=== PATIENT | male | born 1955 | race Caucasian/White ===

== ENCOUNTER → 2019-03-01 | Outpatient (CLI) | payer BC ==
--- NOTE | 2019-03-01 14:25 | REP ---
Clinical: Trauma Technique: AP, lateral, bilateral oblique views of the left fifth digit. Findings: There is a comminuted fracture involving the distal phalanx/terminal tuft consistent with crush injury. Remainder examination appears normal. Impression: Comminuted fracture of the left fifth distal phalanx/terminal tuft. Electronically Signed by Clement Antoine MD 03/01/2019 02:16 P
== END ==
LOC: M WUC 14:01
PROVIDERS: ATTEND Physician Assistant
DX: S60.152A Contusion of left little finger with damage to nail, initial encounter (principal)

== ENCOUNTER 2019-03-29 08:41 | Inpatient (IN) | payer BC ==
[2019-03-29] VITALS (13 sets, daily range): BP systolic 91–115; BP diastolic 61–75
[~2019-03-29] VITALS: Ht 172.7 cm; Wt 91.4 kg
[2019-03-29] MEDS ORDERED: METO1TAB32 PO (09:01)
[2019-03-29] MEDS ORDERED: ATOR1TAB21 PO (09:01)
[2019-03-29] MEDS ORDERED: LISI-542 PO (09:01)
[2019-03-29 10:01] LABS: BASO % 0.4 % (0.0-1.0); EOS # 0.3 10^3/uL (0.0-0.5); EOS % 3.1 % (0.0-3.0); HEMATOCRIT 43.2 % (42.0-52.0); HEMOGLOBIN 14.1 g/dl (13.5-17.5); LYMPH # 1.2 10^3/uL (1.5-5.0); LYMPH % 14.7 % (24.0-44.0); MEAN CORPUSCULAR HEMOGLOBIN 29.8 pg (27.0-33.0); MEAN CORPUSCULAR HGB CONC 32.6 g/dl (32.0-36.5); MEAN CORPUSCULAR VOLUME 91.3 fl (80.0-96.0); MONO # 0.6 10^3/uL (0.0-0.8); MONO % 6.8 % (0.0-5.0); NEUTROPHILS # 6.1 10^3/uL (1.5-8.5); NEUTROPHILS % 74.5 % (36.0-66.0); PLATELET COUNT, AUTOMATED 113 10^3/uL (150-450); RED BLOOD COUNT 4.73 10^6/uL (4.30-6.10); WHITE BLOOD COUNT 8.1 10^3/uL (4.0-10.0)
[2019-03-29] MEDS ORDERED: NS 1,000 ML IV ONE ×2 (10:30→11:00)
[2019-03-29 10:49] LABS: ALBUMIN 3.5 GM/DL (3.2-5.2); ALT/SGPT 46 U/L (12-78); BILIRUBIN,DIRECT 0.2 MG/DL (0.0-0.2); BILIRUBIN,TOTAL 0.6 MG/DL (0.2-1.0); BLOOD UREA NITROGEN 18 MG/DL (7-18); CALCIUM LEVEL 7.7 MG/DL (8.8-10.2); CARBON DIOXIDE LEVEL 19 MEQ/L (21-32); CHLORIDE LEVEL 111 MEQ/L (98-107); CK-MB VALUE MASS 1.7 NG/ML (<3.6); CPK CREATINE PHOSPHOKINASE 80 U/L (39-308); CREATININE FOR GFR 1.12 MG/DL (0.70-1.30); FREE T4 1.15 NG/DL (0.76-1.46); GLOMERULAR FILTRATION RATE > 60.0 (>49); GLUCOSE, FASTING 159 MG/DL (70-100); MAGNESIUM LEVEL 1.9 MG/DL (1.8-2.4); MB/CK RELATIVE INDEX 2.12 (< OR =4); POTASSIUM SERUM 3.9 MEQ/L (3.5-5.1); SODIUM LEVEL 142 MEQ/L (136-145); TOTAL PROTEIN 6.1 GM/DL (6.4-8.2); TROPONIN I 0.34 NG/ML (< 0.10)
[2019-03-29] MEDS ORDERED: ISOVUE-370 76% 100ML VIAL (Q9967) As Ordered ONE (10:59)
--- NOTE | 2019-03-29 11:32 | REP ---
AP PORTABLE CHEST: 03/29/2019. Clinical history: Syncope, hypothermia. Findings: The lungs are adequately inflated. There is no effusion or acute infiltrate, air within a hiatal hernia is noted in the lower mediastinum. Heart has left ventricular configuration and may be some left atrial enlargement. I do not see vascular redistribution or edema. The aorta is mildly tortuous at the arch but without aneurysm. Airway intact. Some degenerative changes in the spine and shoulders. Impression: 1. Left ventricular configuration of the heart without vascular redistribution or pulmonary edema. No acute infiltrate. 2. Hiatal hernia and some degenerative changes in the spine and shoulders. Electronically Signed by Yordan Guillen MD 03/29/2019 07:07 P
[2019-03-29 11:34] LABS: INR 1.16; PROTHROMBIN TIME 14.6 SECONDS (11.8-14.0)
[2019-03-29] MEDS ORDERED: HEPARIN SOD (PORCINE) 5000 UNITS/ML VIAL IV ONE (12:00)
[2019-03-29] MEDS ORDERED: HEPARIN DRIP 25,000 UNITS in IV 1 EA IV SCH ×3 (13:00→18:00)
--- NOTE | 2019-03-29 13:05 | REP ---
CT BRAIN WITHOUT CONTRAST: 03/29/2019. Clinical history: Fall, syncope. Findings: No prior studies. Noncontrast images of the brain show lateral ventricles midline, symmetric and without dilatation or displacement. Third and fourth ventricles are also in proportion. Basal ganglia symmetric and intact. The basal cisterns are unremarkable. The green-white junction differentiation was normal. I do not see chronic small vessel white matter ischemic changes. The cortical stripe was preserved. There is no vascular territory infarct, hemorrhage, mass, mass effect or edema. Brainstem is intact. Cerebellum shows some minimal atrophy. There is no posterior fossa hemorrhage. Basal cisterns were intact. Mastoids and visualized sinuses were clear. Skull base and calvarium show no fracture or focal lesion. Impression: 1. No CT evidence of acute infarct, hemorrhage, mass, mass effect or edema. 2. Sinuses, mastoids, skull base and calvarium all grossly intact. Negative CT brain. Electronically Signed by Yordan Guillen MD 03/29/2019 07:04 P
--- NOTE | 2019-03-29 13:07 | REP ---
CT CERVICAL SPINE WITHOUT CONTRAST: 03/29/2019. Clinical history: Fall, syncope. Findings: No prior studies. Standard trauma protocol for cervical spine was utilized. Sagittal reconstructions show cervical spondylosis from C3-4 through C6-7. Anterior osteophytes greatest at C6-7, less at C4-5 and C5-6. Osteophytes at other levels as well. Posterior osteophytes only at C5-6 disc space narrowing from C3-4 through C6-7. No compression deformities. The dens was intact in its relationship to the anterior arch and lateral masses of C1 was symmetric and craniocervical junction was unremarkable. Posterior elements including the spinous processes, lamina, pedicles, facets, transverse processes and transverse foramina were all intact. Visualized mastoids intact. There is no evidence of a torticollis on the coronal image. Axial views show no anterior posterior cervical chain mass or pathologic sized adenopathy. The foramina show mild encroachment a left at C3-4 and C4-5 due to uncinate facet spurs left foraminal encroachment at C5-6 due to uncinate and facet spurs. Mild foraminal encroachment bilaterally at C6-7 and C7-T1. The upper thoracic region including those vertebral bodies and portions of the first two rib were unremarkable. Impression: 1. Cervical spondylosis from C3-4 through C6 without compression fracture or malalignment. 2. No significant central canal stenosis but there is foraminal encroachment due to combined factors at multiple levels. 3. Posterior elements without fracture or focal lesion. Electronically Signed by Yordan Guillen MD 03/29/2019 07:04 P
[2019-03-29] MEDS ORDERED: MOM 30ML SUSPENSION UDC PO PRN (13:15)
[2019-03-29] MEDS ORDERED: HEPARIN SOD (PORCINE) 5000 UNITS/ML VIAL IV PRN (13:15)
--- NOTE | 2019-03-29 13:15 | REP ---
CT ANGIOGRAM CHEST: 03/29/2019. Clinical history: Hypotension, syncope. Technique: Bolus of 100 ml Isovue 370 scanning through the chest with coronal and sagittal standard and MIP reconstructions. Findings: The lung rodarte show minimal dependent atelectatic change in the lower lung zones. No effusion or acute infiltrate. No pulmonary nodule or mass. The heart shows left ventricular configuration with left ventricular enlargement. No pericardial thickening or effusion. There is a moderate sized hiatal hernia as seen on chest x-ray. I see no pathologic sized mediastinal or hilar adenopathy. The aorta is without aneurysm or dissection. The main pulmonary artery segment was unremarkable. The left pulmonary artery shows distal thrombus which is also seen extending into the segmental left upper and lower lobe branches, particularly left lower lobe were all segments have extensive thrombus. The right pulmonary artery peripherally shows extensive thrombus in the lower lobe involving the lateral and medial basal segments as well as superior segment. There is also thrombus in the right middle and upper lobe segments. This is not a saddle embolus. However. No pathologic sized mediastinal or hilar mass. The axillary region shows no adenopathy nor is there supraclavicular mass. The bone windows show sternum, manubrium, clavicles as visualized, portions of the scapula and humeral heads all without fracture, focal lesion. The visualized ribs and spine are without fracture. The upper abdomen will be discussed in the CT abdomen report. Impression: 1. Extensive pulmonary emboli involving all lobes. Particularly the lower lobe segmental vessels are involving more left than right. These findings were discussed by phone with the attending physician during this dictation. 2. Moderate sized hiatal hernia. Left ventricular enlargement. 3. Some minor degenerative bone changes. No other significant finding. Electronically Signed by Yordan Guillen MD 03/29/2019 07:05 P
--- NOTE | 2019-03-29 13:41 | REP ---
CT ABDOMEN PELVIS WITH IV CONTRAST: 03/29/2019. Clinical history: Hypotension, syncope. Technique: Bolus 100 ml Isovue 370 scanning through the abdomen pelvis with coronal and sagittal reconstructions. Findings: CT abdomen: There are no priors studies. Lung bases show minor dependent atelectasis. There is a moderate sized hiatal hernia. The heart size mildly prominent with left ventricular configuration. There is evidence of thrombus in both lower lobes and right middle lobe pulmonary artery segments is seen. The upper most of view images. This was seen in entirety on the CTA chest and already described. Liver is not enlarged. Spleen shows no focal lesion. There is no biliary dilatation nor adjacent ascites. No hepatic mass. Gallbladder is without calcified stone or mass. Pancreas, adrenal glands and kidneys are unremarkable. I see no aortic aneurysm or dissection. No periaortic or retroperitoneal pathologic sized lymphadenopathy. There is atherosclerotic calcifications in the aorta and branches. Small bowel loops unremarkable. The colon is without sign of colitis or diverticulitis in the abdomen proper. Lung window review of all CT slices shows no perforation or free air. Bone windows show degenerative disc changes and some hypertrophic facet changes lower lumbar spine. No compression deformity of destructive lesions in the thoracic or lumbar region. The visualized lower thoracic ribs were unremarkable. CT pelvis: Sacrum, SI joints, pelvis and hips are without fracture or focal lesion. Some minor degenerative changes are seen. There is no renal, ureteral or bladder stone. No hydronephrosis or hydroureter. Pelvic phleboliths are seen bilaterally. Distal left colon and sigmoid show some muscular hypertrophy and diverticulosis without diverticulitis. Small bowel loops deep pelvis unremarkable. Prostate with some calcifications but no significant enlargement. No ventral or inguinal hernia. Impression: 1. No CT evidence of acute pathology in the abdomen pelvis. I see no retroperitoneal hematoma, mass, calcified gallstone, renal stone disease, adenopathy or other acute finding. 2. Moderate sized hiatal hernia. 3. Pulmonary emboli visible as described in the CT report ovary given. Electronically Signed by Yordan Guillen MD 03/29/2019 07:05 P
[2019-03-29] MEDS ORDERED: HEPARIN 1,000 UNITS/ML 10ML VIAL (FOR RADIOLOGY& DIALYSIS ONLY) As Ordered ONE (14:40)
[2019-03-29] MEDS ORDERED: MIDAZOLAM INJ 2 MG/2 ML VIAL (J2250) As Ordered ONE (14:40)
[2019-03-29] MEDS ORDERED: fentaNYL 100 MCG/2 ML INJECTION (J3010) As Ordered ONE (14:40)
[2019-03-29] MEDS ORDERED: LIDOCAINE 1% MDV 20ML VIAL As Ordered ONE (14:41)
[2019-03-29] MEDS ORDERED: ISOVUE-300 61% 50ML VIAL (Q9967) As Ordered ONE (14:41)
--- NOTE | 2019-03-29 14:51 | REP ---
BILATERAL LOWER EXTREMITY DOPPLER VENOUS ULTRASOUND: 03/29/2019. Clinical history: Known pulmonary emboli. Comparison: None Technique: The deep venous system of the bilateral lower extremities is evaluated with green scale imaging, compression ultrasound, color imaging and duplex Doppler interrogation. Examination from the groin through the popliteal fossa into the proximal calf. RIGHT LOWER EXTREMITY: Findings: There is full compressibility from the common femoral vein in the inguinal region through the popliteal vein. Color imaging confirms patency throughout the course of the deep venous system. There is respiratory variation and augmented flow at all levels. Impression: 1. No Doppler venous ultrasound evidence of DVT in the right lower extremity. LEFT LOWER EXTREMITY: Findings: The common femoral and superficial femoral vein to the proximal popliteal vein showed full compressibility, color flow and duplex Doppler tracings with normal compression characteristics. However the distal popliteal vein and tibioperoneal trunk and extending into both posterior tibial and left peroneal veins show occlusive thrombus. Impression: 1. There is an occlusive thrombus in the distal left popliteal vein into the tibioperoneal trunk, left posterior tibial and left peroneal veins. Proximal popliteal vein through to the common femoral vein are without thrombus and fully compressible. Electronically Signed by Yordan Guillen MD 03/29/2019 02:42 P
--- NOTE | 2019-03-29 15:26 | CR.PDOC ---
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 He bent over to pick something up and felt himself passing out. He then contacted EMS who brought him to the emergency department. He was worked up appropriately and CTA of the chest confirmed a large clot burden in the left and right proximal pulmonary arteries, but no saddle embolus present. The patient was stable on room air 96% when at rest, but dramatically short of breath with any exertion, even rolling over in bed. He was a bit hypotensive on arrival to the ER which resolved with IV fluid hydration. He was started immediately on a heparin drip and is currently therapeutic. We discussed the risks benefits and alternatives to a TPA thrombolysis of pulmonary emboli and he is agreeable to proceed. His family is present at the bedside and we had an extensive conversation. Additionally, we went over a list of risk factors for bleeding with TPA and the patient denies nosebleeds, bleeding gums, hemoptysis, hematemesis, varices, history of alcoholism, hematuria, hematochezia, recent trauma other than his syncopal episode today where he says he did not hit his head or injure himself. He denies car accidents, falls, sports injuries, orthopedic injuries, or other injuries. He denies recent surgeries. His only current risk factor for bleeding is that the patient has hemorrhoids and occasionally has blood on the toilet tissue when he wipes after a bowel movement. We will give him a stool softener, but I told him if he has bleeding from hemorrhoids we will have to stop the tPA. Due to the large clot burden, I think we will accept this risk for him as the benefits of TPA thrombolysis outweigh the risks for bleeding from hemorrhoids at this point. If bleeding should occur, we should be able to control it and we will have to stop the tPA. After having a lengthy discussion with the patient in reviewing his imaging and also his venous duplex of the bilateral lower extremities, he was agreeable to proceed with TPA thrombolysis. Informed consent was obtained. He has minimal residual thrombus in the distal popliteal and tibial veins on the left, no DVT on the right, thus I do not feel an IVC filter is necessary at this time. We'll proceed to IR for thrombolysis. ALLERGIES: Please see below. HOME MEDICATIONS: Please see below. PAST MEDICAL HISTORY: 1. Hypertension 2. Hemorrhoids 3. Hyperlipidemia PAST SURGICAL HISTORY: 1. Cardiac cath 2. Discectomy 3. Appendectomy 4. ACL repair FAMILY HISTORY: Hypertension, heart disease SOCIAL HISTORY: Patient is and his children are also present today. He is a former smoker, but no current tobacco or illicit drug use and minimal social alcohol use reported. REVIEW OF SYSTEMS: CONSTITUTIONAL: Denies weak gain or weight loss, fevers or chills HEENT: Denies vision changes, dysphagia, or dysphasia CARDIOVASCULAR: Positive palpitations positive chest pain RESPIRATORY: Positive shortness of breath GENITOURINARY: No dysuria MUSCULOSKELETAL: Positive back pain GASTROINTESTINAL: Positive hemorrhoids SKIN: Denies rashes or skin cancers NEUROLOGICAL: Denies headache seizures focal neurologic deficits PSYCHIATRIC: Denies anxiety depression ENDOCRINE: Denies diabetes or thyroid disease HEMATOLOGIC/LYMPHATIC: Denies bleeding or clotting disorders ALLERGIC/IMMUNOLOGIC: Denies. PHYSICAL EXAMINATION: VITAL SIGNS: Please see below. GENERAL APPEARANCE: Well-appearing gentleman in no acute distress HEENT: PERRL, TMI RESPIRATORY: Diminished breath sounds bilaterally no wheezes CARDIOVASCULAR: Regular rhythm tachycardia 113 ABDOMEN: Soft nontender nondistended EXTREMITIES: Positive distal pulses, no significant swelling in lower extremities NEUROLOGICAL: Alert and oriented 3, moves all extremities equally. PSYCHIATRIC: Pleasant and cooperative LABORATORY DATA: Please see below. ASSESSMENT/PLAN: 1. Will proceed for TPA thrombolysis bilateral pulmonary emboli. Patient will require ICU bed post procedure. He will be on bedrest until planned takeback tomorrow for repeat imaging and possible ongoing TPA thrombolysis versus discontinuation of thrombolysis catheter. 2. Stool softener to minimize risk of bleeding from hemorrhoids. We appreciate the opportunity to participate in the care of this patient. Vital Signs/I&O Vital Signs Date Time Temp Pulse Resp B/P (MAP) Pulse Ox O2 Delivery O2 Flow Rate FiO2 03/29/19 14:51 120 98 03/29/19 14:47 122/76 (91) 03/29/19 09:03 96.7 03/29/19 08:51 20 Room Air Laboratory Data Labs 24H Laboratory Tests 2 03/29/19 09:45: Immature Granulocyte % (Auto) 0.5, White Blood Count 8.1, Red Blood Count 4.73, Hemoglobin 14.1, Hematocrit 43.2, Mean Corpuscular Volume 91.3, Mean Corpuscular Hemoglobin 29.8, Mean Corpuscular Hemoglobin Concent 32.6, Red Cell Distribution Width 12.4, Platelet Count 113L, Neutrophils (%) (Auto) 74.5H, Lymphocytes (%) (Auto) 14.7L, Monocytes (%) (Auto) 6.8H, Eosinophils (%) (Auto) 3.1H, Basophils (%) (Auto) 0.4, Neutrophils # (Auto) 6.1, Lymphocytes # (Auto) 1.2L, Monocytes # (Auto) 0.6, Eosinophils # (Auto) 0.3, Basophils # (Auto) 0.0, Nucleated Red Blood Cells % (auto) 0.0, Carboxyhemoglobin 2.4H, Anion Gap 12, Glomerular Filtration Rate > 60.0, Lactic Acid Level 4.3*H, Calcium Level 7.7L, Magnesium Level 1.9, Aspartate Amino Transf (AST/SGOT) 34, Alanine Aminotransferase (ALT/SGPT) 46, Alkaline Phosphatase 109, Total Bilirubin 0.6, Direct Bilirubin 0.2, Total Creatine Kinase 80, Creatine Kinase MB 1.7, Creatine Kinase MB Relative Index 2.12, Troponin I 0.34H, Total Protein 6.1L, Albumin 3.5, Albumin/Globulin Ratio 1.35, Thyroid Stimulating Hormone (TSH) 1.480, Free Thyroxine 1.15 03/29/19 11:11: Prothrombin Time 14.6H, Prothromb Time International Ratio 1.16, Activated Partial Thromboplast Time 20.0L 03/29/19 13:46: Erythrocyte Sedimentation Rate 3, C-Reactive Protein, Quantitative 0.46H 03/29/19 15:09: CBC/BMP Laboratory Tests 03/29/19 09:45 Red Blood Count 4.73, Mean Corpuscular Volume 91.3, Mean Corpuscular Hemoglobin 29.8, Mean Corpuscular Hemoglobin Concent 32.6, Red Cell Distribution Width 12.4, Neutrophils (%) (Auto) 74.5 H, Lymphocytes (%) (Auto) 14.7 L, Monocytes (%) (Auto) 6.8 H, Eosinophils (%) (Auto) 3.1 H, Basophils (%) (Auto) 0.4, Neutrophils # (Auto) 6.1, Lymphocytes # (Auto) 1.2 L, Monocytes # (Auto) 0.6, Eosinophils # (Auto) 0.3, Basophils # (Auto) 0.0 Microbiology Microbiology 03/29/19 Blood Culture, Received Pending 03/29/19 Blood Culture, Received Pending Allergies Coded Allergies: tamsulosin (Verified Allergy, Unknown, 03/29/19) Home Medications Scheduled Atorvastatin Calcium (Atorvastatin Calcium) 20 Mg Tablet, 20 MG PO DAILY, (Reported) Lisinopril (Lisinopril) 5 Mg Tablet, 5 MG PO DAILY, (Reported) Metoprolol Succinate (Metoprolol Succinate) 25 Mg Tab.er.24h, 25 MG PO DAILY, (Reported) NICHOLAS NOBLES MD Mar 29, 2019 15:26
[2019-03-29] MEDS ORDERED: ALTEPLASE 2 MG/2 ML VIAL (J2997 PER 1MG) As Ordered ONE (15:55)
[2019-03-29] MEDS ORDERED: ceFAZolin 1GM INJ (J0690 PER 500MG) As Ordered ONE (15:59)
--- NOTE | 2019-03-29 15:59 | HPEPDOC ---
General Date of Admission Mar 29, 2019 at 13:04 Date of Service: Mar 29, 2019 Chief Complaint The patient is a 63-year-old male admitted with a reason for visit of Syncope. Source: Patient, Family Exam Limitations: No limitations Associated Symptoms: Syncope, Weakness, Hypotension, Dizziness History of Present Illness 63 year old male with PMH of hypertension and hyperlipidemia was brought in by EMS for unwitnessed Syncope after he was found down by the side of the road near his trailer. EMS found him to be hypotensive and hypothermic and could not get an IV into him in the field. As per joao he was working in his shed which was across the street from his trailer about 300 ft. he was sorting through things there when he felt dizzy he leaned on the show blower there expecting the dizziness to pass . Next thing he knows he is on the floor of the shed. Initially he felt disoriented and took a few minutes to figure out where he was . he was very weak and could not stand up he dragged himself out of the shed to the side of the road and was able to attract the neighbors attention who then called the EMS. The whole thing happened within about 45 minutes. Unsure how long he had passed out for. He denies any bowel or bladder incontinence. Patient says that he was just not feeling well for the past 2 weeks feeling t ired and lack of energy but nothing too bad and did not need to see any doctor. He is a school administrator by profession. He drives about 3 hours in the mornings and 2 hours in the afternoons for his job. On Arrival to the ED he was hypotensive with Bp of 68/45. he was hypothermic with a temperature of 95.3. Extensive work up in the ED showed Extensive pulmonary emboli involving all lobes. Particularly the lower lobe segmental vessels are involving more left than right and a DVT in the Left popliteal vein and tibioperoneal trunk. Patient was admitted for DVT and massive pulmonary embolism causing syncope. Home Medications Scheduled Atorvastatin Calcium (Atorvastatin Calcium) 20 Mg Tablet, 20 MG PO DAILY, (Reported) Lisinopril (Lisinopril) 5 Mg Tablet, 5 MG PO DAILY, (Reported) Metoprolol Succinate (Metoprolol Succinate) 25 Mg Tab.er.24h, 25 MG PO DAILY, (Reported) Allergies Coded Allergies: tamsulosin (Verified Allergy, Unknown, 03/29/19) Past Medical History Medical History Diverticulitis, hypertension, hyperlipidemia, BPH, Asthma Surgical History Vasectomy, appendectomy, knee surgery, wisdom tooth extraction Family History Significant Family History: Cancer (father colon cancer), COPD (mother), Heart disease (mother), Hypertension (father), Other (MCTD in sister, Stroke due to SVT with PFO in mother.) Social History * Smoker: former Smoker (1/2 pack for 10 years) Alcohol: occationally (2 glasses of wine in a week) Drugs: denies A-FIB/CHADSVASC A-FIB History Current/History of A-Fib/PAF?: No Review of Systems Constitutional: Reports: Weakness, Fatigue; Denies: Chills, Fever, Night Sweats Eyes: Denies: Pain, Vision change ENT: Denies: Head Aches, Ear Pain, Dysphagia Skin: Denies: Rash, Lesions, Breakdown Pulmonary: Denies: Dyspnea, Cough Cardiovascular: Reports: Palpitations, Lt Headedness; Denies: Chest Pain, Orthopnea, Paroxysmal Noc. Dyspnea, Edema Gastrointestinal: Denies: Nausea, Vomiting, Abdominal Pain, Diarrhea Genitourinary: Denies: Dysuria, Frequency, Incontinence, Retention Hematologic: Denies: Bruising, Bleeding Excessively Musculoskeletal: Reports: Back Pain; Denies: Neck Pain, Joint Pain, Muscle Pain, Spasms Neurological: Reports: Confusion Psych: Denies: Depression, Memory Issues Physical Examination General Exam: Positive: Alert, Cooperative, No Acute Distress Eye Exam: Positive: PERRLA, Conjunctiva & lids normal, EOMI; Negative: Sclera icteric ENT Exam: Positive: Atraumatic, Mucous membr. moist/pink, Pharynx Normal Neck Exam: Positive: Supple; Negative: JVD, thyromegaly Chest Exam: Positive: Clear to auscultation, Normal air movement Heart Exam: Positive: Bradycardic, Regular Rhythm, Normal S1, Normal S2; Negative: Gallops, Murmurs, Rubs Telemetry: Positive: Sinus Abdomen Exam: Positive: Normal bowel sounds, Soft; Negative: Tenderness, Hepatospenomegaly Extremity Exam: Negative: Clubbing, Cyanosis, Edema, Tenderness, Swelling Skin Exam: Positive: Nl turgor and temperature; Negative: Breakdown, Lesion Neuro Exam: Positive: Normal Tone, Cranial Nerves 3-12 NL Psych Exam: Positive: Mental status NL, Memory Intact, Oriented x 3 Vital Signs Vital Signs Date Time Temp Pulse Resp B/P (MAP) Pulse Ox O2 Delivery O2 Flow Rate FiO2 03/29/19 14:51 120 98 03/29/19 14:47 122/76 (91) 03/29/19 09:03 96.7 03/29/19 08:51 20 Room Air Laboratory Data Labs 24H Laboratory Tests 2 03/29/19 09:45: Immature Granulocyte % (Auto) 0.5, White Blood Count 8.1, Red Blood Count 4.73, Hemoglobin 14.1, Hematocrit 43.2, Mean Corpuscular Volume 91.3, Mean Corpuscular Hemoglobin 29.8, Mean Corpuscular Hemoglobin Concent 32.6, Red Cell Distribution Width 12.4, Platelet Count 113L, Neutrophils (%) (Auto) 74.5H, Lymphocytes (%) (Auto) 14.7L, Monocytes (%) (Auto) 6.8H, Eosinophils (%) (Auto) 3.1H, Basophils (%) (Auto) 0.4, Neutrophils # (Auto) 6.1, Lymphocytes # (Auto) 1.2L, Monocytes # (Auto) 0.6, Eosinophils # (Auto) 0.3, Basophils # (Auto) 0.0, Nucleated Red Blood Cells % (auto) 0.0, Carboxyhemoglobin 2.4H, Anion Gap 12, Glomerular Filtration Rate > 60.0, Lactic Acid Level 4.3*H, Calcium Level 7.7L, Magnesium Level 1.9, Aspartate Amino Transf (AST/SGOT) 34, Alanine Aminotransferase (ALT/SGPT) 46, Alkaline Phosphatase 109, Total Bilirubin 0.6, Direct Bilirubin 0.2, Total Creatine Kinase 80, Creatine Kinase MB 1.7, Creatine Kinase MB Relative Index 2.12, Troponin I 0.34H, Total Protein 6.1L, Albumin 3.5, Albumin/Globulin Ratio 1.35, Thyroid Stimulating Hormone (TSH) 1.480, Free Thyroxine 1.15 03/29/19 11:11: Prothrombin Time 14.6H, Prothromb Time International Ratio 1.16, Activated Partial Thromboplast Time 20.0L 03/29/19 13:46: Activated Partial Thromboplast Time > 240.0*H, Erythrocyte Sedimentation Rate 3, C-Reactive Protein, Quantitative 0.46H 03/29/19 15:09: CBC/BMP Laboratory Tests 03/29/19 09:45 Red Blood Count 4.73, Mean Corpuscular Volume 91.3, Mean Corpuscular Hemoglobin 29.8, Mean Corpuscular Hemoglobin Concent 32.6, Red Cell Distribution Width 12.4, Neutrophils (%) (Auto) 74.5 H, Lymphocytes (%) (Auto) 14.7 L, Monocytes (%) (Auto) 6.8 H, Eosinophils (%) (Auto) 3.1 H, Basophils (%) (Auto) 0.4, Neutrophils # (Auto) 6.1, Lymphocytes # (Auto) 1.2 L, Monocytes # (Auto) 0.6, Eosinophils # (Auto) 0.3, Basophils # (Auto) 0.0 Microbiology Microbiology 03/29/19 Blood Culture, Received Pending 03/29/19 Blood Culture, Received Pending Assessment/Plan 63 year old male with PMH of hypertension and hyperlipidemia was brought in by EMS for unwitnessed Syncope after he was found down by the side of the road near his trailer. EMS found him to be hypotensive and hypothermic and could not get an IV into him in the field. As per joao he was working in his shed which was across the street from his trailer about 300 ft. he was sorting through things there when he felt dizzy he leaned on the show blower there expecting the dizziness to pass . Next thing he knows he is on the floor of the shed. Initially he felt disoriented and took a few minutes to figure out where he was . he was very weak and could not stand up he dragged himself out of the shed to the side of the road and was able to attract the neighbors attention who then called the EMS. The whole thing happened within about 45 minutes. Unsure how long he had passed out for. Patient says that he was just not feeling well for the past 2 weeks feeling tired and lack of energy but nothing too bad and did not need to see any doctor. He is a school administrator by profession. He drives about 3 hours in the mornings and 2 hours in the afternoons for his job. On Arrival to the ED he was hypotensive with Bp of 68/45. he was hypothermic with a temperature of 95.3. Extensive work up in the ED showed Extensive pulmonary emboli involving all lobes. Particularly the lower lobe segmental vessels are involving more left than right and a DVT in the Left popliteal vein and tibioperoneal trunk. Patient was admitted for DVT and massive pulmonary embolism causing syncope. Syncope due to massive pulmonary embolism with hypotension Continue IVF resuscitation will admit to ICU and treat pulmonary embolism Pulmonary Embolism with left popliteal and distal DVT unstable with hypotension will send hypercoagulable work up started on heparin infusion with APTT every 2hours . will try to aim for therapeutic levels as quickly as possible Consulted Vascular. Dr Agosto will be taking the patient to IR for intra clot thrombolysis. Will get echo Hypertension will hold all antihypertensive meds Hyperlipidemia will hold statin for now. Plan / VTE VTE Prophylaxis Ordered?: Yes ALISON ANDERSEN MD Mar 29, 2019 15:59
[2019-03-29] MEDS: NS 1,000 ML IV SCH (16:00)
[2019-03-29] MEDS ORDERED: ALTEPLASE RECOMBINANT 25 MG in NS 225 ML IV SCH (17:00)
[2019-03-29] MEDS ORDERED: diazePAM 5 MG TAB PO PRN (17:15)
--- NOTE | 2019-03-29 17:58 | ROOPDOC ---
[facility] Report Of Operation Report of Operation DATE OF PROCEDURE: 03/29/19 PREPROCEDURE DIAGNOSES: Bilateral extensive pulmonary emboli, symptomatic POSTPROCEDURE DIAGNOSES: Same PROCEDURE: 1. Ultrasound-guided access right common femoral vein 2. Pulmonary arteriogram 3. Placement of a 20 cm thrombolysis catheter left pulmonary artery SURGEON: Nicholas Bentley MD ANESTHESIA: 5 mL local anesthesia. Moderate intravenous conscious sedation was supervised by Dr. Bentley. The patient was independently monitored by a registered nurse assign the Department of radiology using automated blood press ure, EKG, and pulse oximetry. The detail conscious sedation record is permanently started in the hospital information system. The following is a conscious sedation record: 1 mg Versed, 25 g fentanyl, start time 15:56, stop time 17:01. INDICATION FOR PROCEDURE: This is a very pleasant 63-year-old patient who had a syncopal episode acutely today while performing tasks around the house. He became very short of breath and was brought by EMS to the ER and appropriate workup was performed. The patient had a CT of the chest that revealed substantial bilateral pulmonary emboli. He was tachycardic, hypotensive, short of breath with any exertion, and we discussed the risks benefits and alternatives to pulmonary arteriogram with placement of the thrombolysis catheter. He was extensively questioned about bleeding risks and recent history of bleeding, and denied any recent bleeding or risks of bleeding except for a history of hemorrhoids and mild bleeding after bowel movements at times. We will watch for this and start a stool softener to hopefully prevent bleeding but will stop the tPA if any bleeding is noted. The patient was in his family were extensively counseled and all questions were answered. Informed consent was obtained. INTERPRETATION: 1. The main pulmonary arteries left and right are patent but the subsegmental proximal branches are all heavy with clot. No saddle embolus is noted. 2. Successful placement of tPA lysis catheter, 20 cm infusion length, across the main pulmonary artery and into the left pulmonary artery. PROCEDURE: Patient was brought to the angiographic suite in stable condition and placed supine on the fluoroscopic table. His bilateral groins were prepped and draped in sterile fashion. A timeout was performed. Sedation and antibiotics were administered without complication. Local anesthesia was a needle leader to skin and subcutaneous tissue over the right common femoral vein and a microneedle was used to access the vein under ultrasound guidance. A wire was passed through this access and a micro-sheath was placed and flushed with saline. We then passed a Glidewire through this access into the femoral vein, the IVC, and the S VC under fluoroscopic guidance. We then exchanged sheath for a 6 [place] sheath and flushed the sheath with saline. Following this, we advanced and ankles catheter into the proximal IVC and utilize this to access the right atrium. We then advanced a Glidewire through the right atrium, through the right ventricle into the pulmonary arteries. The catheter was then advanced in a pulmonary arteriogram was performed. We access the right pulmonary artery and 6 mg of tPA was injected. We then switched her catheter to the left pulmonary artery and advanced it is far as we could so it had good purchase and would not move out of the pulmonary artery overnight. Following this, we injected 4 mg of tPA into the left pulmonary artery. We then began her infusion of 1 mg of tPA in our through the infusion catheter. Normal saline was used to keep the sheath open on a pressure back. Heparin was administered through the peripheral IV at 400 units an hour. The sheath in the catheter were securely fastened to the patient's leg and covered with Tegaderms. The patient was then allowed to transfer to the ICU in stable condition. ESTIMATED BLOOD LOSS: Approximately 5 mL. COMPLICATIONS: None. PLAN: We will continue the TPA through the thrombolysis catheter overnight at 1 mg an hour (10 mL an hour) in the heparin drip at 400 units an hour with no titration for PTT. Normal saline is running through the sheath just to keep it patent and this is on a pressure back. It is okay to draw labs from the sheath but then the normal saline should be restarted to keep the sheath patent. Our plan will be to bring the patient back tomorrow for a repeat pulmonary arteriogram, and possible repositioning of the catheter versus discontinuation of the thrombolysis depending on findings. NICHOLAS BENTLEY MD Mar 29, 2019 17:57
[2019-03-29 18:15] LABS: HEMATOCRIT 38.1 % (42.0-52.0); HEMOGLOBIN 12.9 g/dl (13.5-17.5); MEAN CORPUSCULAR HEMOGLOBIN 30.4 pg (27.0-33.0); MEAN CORPUSCULAR HGB CONC 33.9 g/dl (32.0-36.5); MEAN CORPUSCULAR VOLUME 89.6 fl (80.0-96.0); PLATELET COUNT, AUTOMATED 124 10^3/uL (150-450); RED BLOOD COUNT 4.25 10^6/uL (4.30-6.10); WHITE BLOOD COUNT 5.9 10^3/uL (4.0-10.0)
[2019-03-29 18:48] LABS: PARTIAL THROMBOPLASTIN TIME 189.6 SECONDS (25.0-38.4)
[2019-03-29] MEDS: DOCUSATE SODIUM 100 MG CAP PO SCH (21:17)
[2019-03-29] MEDS: PERCOCET 5MG/325MG TAB PO PRN (21:18)
[2019-03-30] VITALS (12 sets, daily range): BP systolic 93–121; BP diastolic 58–69
[2019-03-30 00:22] LABS: HEMATOCRIT 35.3 % (42.0-52.0); HEMOGLOBIN 11.7 g/dl (13.5-17.5); MEAN CORPUSCULAR HEMOGLOBIN 29.3 pg (27.0-33.0); MEAN CORPUSCULAR HGB CONC 33.1 g/dl (32.0-36.5); MEAN CORPUSCULAR VOLUME 88.5 fl (80.0-96.0); PLATELET COUNT, AUTOMATED 124 10^3/uL (150-450); RED BLOOD COUNT 3.99 10^6/uL (4.30-6.10); WHITE BLOOD COUNT 5.8 10^3/uL (4.0-10.0)
[2019-03-30] MEDS: NS 1,000 ML IV SCH ×2 (02:00→08:03)
[2019-03-30] MEDS: PERCOCET 5MG/325MG TAB PO PRN ×3 (03:34→15:00)
[2019-03-30 06:05] LABS: BASO % 0.4 % (0.0-1.0); EOS % 0.7 % (0.0-3.0); HEMATOCRIT 35.3 % (42.0-52.0); HEMOGLOBIN 11.6 g/dl (13.5-17.5); LYMPH % 18.2 % (24.0-44.0); MEAN CORPUSCULAR HEMOGLOBIN 30.1 pg (27.0-33.0); MEAN CORPUSCULAR HGB CONC 32.9 g/dl (32.0-36.5); MEAN CORPUSCULAR VOLUME 91.5 fl (80.0-96.0); MONO # 0.6 10^3/uL (0.0-0.8); MONO % 11.1 % (0.0-5.0); NEUTROPHILS # 3.9 10^3/uL (1.5-8.5); NEUTROPHILS % 69.4 % (36.0-66.0); PLATELET COUNT, AUTOMATED 110 10^3/uL (150-450); RED BLOOD COUNT 3.86 10^6/uL (4.30-6.10); WHITE BLOOD COUNT 5.7 10^3/uL (4.0-10.0)
[2019-03-30 06:16] LABS: PARTIAL THROMBOPLASTIN TIME 43.6 SECONDS (25.0-38.4)
[2019-03-30 06:19] LABS: BLOOD UREA NITROGEN 13 MG/DL (7-18); CALCIUM LEVEL 7.7 MG/DL (8.8-10.2); CARBON DIOXIDE LEVEL 24 MEQ/L (21-32); CHLORIDE LEVEL 112 MEQ/L (98-107); GLOMERULAR FILTRATION RATE > 60.0 (>49); GLUCOSE, FASTING 83 MG/DL (70-100); POTASSIUM SERUM 3.8 MEQ/L (3.5-5.1); SODIUM LEVEL 144 MEQ/L (136-145)
--- NOTE | 2019-03-30 08:05 | IPNPDOC ---
Subjective Date Seen The patient was seen on 03/30/19. Subjective Chief Complaint/HPI Was having severe back pain and muscle spasms at night so he could not get much sleep. His cough is better. he though he had caught a cold for about a week but i feel this could have been due to the PE. No fever or chills, no overt bleeding anywhere, no diarrhea. Complains of some lower abdominal pain. Objective Physical Examination General Exam: Positive: Alert, Cooperative, No Acute Distress Eye Exam: Positive: PERRLA, Conjunctiva & lids normal, EOMI; Negative: Sclera icteric ENT Exam: Positive: Atraumatic, Mucous membr. moist/pink, Pharynx Normal Neck Exam: Positive: Supple; Negative: JVD, thyromegaly Chest Exam: Positive: Clear to auscultation, Normal air movement Heart Exam: Positive: Bradycardic, Regular Rhythm, Normal S1, Normal S2; Negative: Gallops, Murmurs, Rubs Telemetry: Positive: Sinus Abdomen Exam: Positive: Normal bowel sounds, Soft; Negative: Tenderness, Hepatospenomegaly Extremity Exam: Negative: Clubbing, Cyanosis, Edema, Tenderness, Swelling Skin Exam: Positive: Nl turgor and temperature; Negative: Breakdown, Lesion Neuro Exam: Positive: Normal Tone, Cranial Nerves 3-12 NL Psych Exam: Positive: Mental status NL, Memory Intact, Oriented x 3 Assessment /Plan Assessment 63 year old male with PMH of hypertension and hyperlipidemia was brought in by EMS for unwitnessed Syncope after he was found down by the side of the road near his trailer. EMS found him to be hypotensive and hypothermic and could not get an IV into him in the field. As per joao he was working in his shed which was across the street from his trailer about 300 ft. he was sorting through things there when he felt dizzy he leaned on the show blower there expecting the dizziness to pass . Next thing he knows he is on the floor of the shed. Initially he felt disoriented and took a few minutes to figure out where he was . he was very weak and could not stand up he dragged himself out of the shed to the side of the road and was able to attract the neighbors attention who then called the EMS. The whole thing happened within about 45 minutes. Unsure how long he had passed out for. Patient says that he was just not feeling well for the past 2 weeks feeling tired and lack of energy but nothing too bad and did not need to see any doctor. 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 On Arrival to the ED he was hypotensive with Bp of 68/45. he was hypothermic with a temperature of 95.3. Extensive work up in the ED showed Extensive pulmonary emboli involving all lobes. Particularly the lower lobe segmental vessels are involving more left than right and a DVT in the Left popliteal vein and tibioperoneal trunk. Patient was admitted for DVT and massive pulmonary embolism causing syncope. Syncope due to massive pulmonary embolism with hypotension Continue IVF Pulmonary Embolism with left popliteal and distal DVT unstable with hypotension will send hypercoagulable work up Intraclot thrombolysis is going on. Getting alteplase through PA catheter fibrinogen being monitored. on heparin gtt fixed dose. Will get echo h/o Hypertension but now low normal BP due to massive PE will hold all antihypertensive meds Hyperlipidemia will hold statin for now. Chronic low back place with muscle spasms. on diazepam for muscle spasms also on percocet. was seeing chiropractor in january and was laid up for about 2 weeks and had started walking last week. Plan/VTE VTE Prophylaxis Ordered?: Yes VS, I&O, 24H, Fishbone Vital Signs/I&O Vital Signs Date Time Temp Pulse Resp B/P (MAP) Pulse Ox O2 Delivery O2 Flow Rate FiO2 03/30/19 05:00 69 18 93/62 (72) 98 2.0 03/30/19 04:04 99.4 03/29/19 08:51 Room Air I&O- Last 24 Hours up to 6 AM 03/30/19 06:00 Intake Total 2390 ml Output Total 800 ml Balance 1590 ml Laboratory Data 24H LABS Laboratory Tests 2 03/29/19 09:45: Immature Granulocyte % (Auto) 0.5, White Blood Count 8.1, Red Blood Count 4.73, Hemoglobin 14.1, Hematocrit 43.2, Mean Corpuscular Volume 91.3, Mean Corpuscular Hemoglobin 29.8, Mean Corpuscular Hemoglobin Concent 32.6, Red Cell Distribution Width 12.4, Platelet Count 113L, Neutrophils (%) (Auto) 74.5H, Lymphocytes (%) (Auto) 14.7L, Monocytes (%) (Auto) 6.8H, Eosinophils (%) (Auto) 3.1H, Basophils (%) (Auto) 0.4, Neutrophils # (Auto) 6.1, Lymphocytes # (Auto) 1.2L, Monocytes # (Auto) 0.6, Eosinophils # (Auto) 0.3, Basophils # (Auto) 0.0, Nucleated Red Blood Cells % (auto) 0.0, Carboxyhemoglobin 2.4H, Anion Gap 12, Glomerular Filtr ation Rate > 60.0, Lactic Acid Level 4.3*H, Calcium Level 7.7L, Magnesium Level 1.9, Aspartate Amino Transf (AST/SGOT) 34, Alanine Aminotransferase (ALT/SGPT) 46, Alkaline Phosphatase 109, Total Bilirubin 0.6, Direct Bilirubin 0.2, Total Creatine Kinase 80, Creatine Kinase MB 1.7, Creatine Kinase MB Relative Index 2.12, Troponin I 0.34H, Total Protein 6.1L, Albumin 3.5, Albumin/Globulin Ratio 1.35, Thyroid Stimulating Hormone (TSH) 1.480, Free Thyroxine 1.15 03/29/19 11:11: Prothrombin Time 14.6H, Prothromb Time International Ratio 1.16, Activated Partial Thromboplast Time 20.0L 03/29/19 13:46: Activated Partial Thromboplast Time > 240.0*H, Erythrocyte Sedimentation Rate 3, C-Reactive Protein, Quantitative 0.46H 03/29/19 15:09: Lactic Acid Followup at 4 Hours 2.0 03/29/19 18:00: Nucleated Red Blood Cells % (auto) 0.0, Activated Partial Thromboplast Time 189.6*H, Fibrinogen 284 03/29/19 18:59: Activated Partial Thromboplast Time 121.8*H 03/29/19 23:59: Nucleated Red Blood Cells % (auto) 0.0, Activated Partial Thromboplast Time 52.0H, Fibrinogen 280 03/30/19 05:50: Nucleated Red Blood Cells % (auto) 0.0, Activated Partial Thromboplast Time 43.6H, Fibrinogen 280, Immature Granulocyte % (Auto) 0.2, White Blood Count 5.7, Red Blood Count 3.86L, Hemoglobin 11.6L, Hematocrit 35.3L, Mean Corpuscular Volume 91.5, Mean Corpuscular Hemoglobin 30.1, Mean Corpuscular Hemoglobin Concent 32.9, Red Cell Distribution Width 12.8, Platelet Count 110L, Neutrophils (%) (Auto) 69.4H, Lymphocytes (%) (Auto) 18.2L, Monocytes (%) (Auto) 11.1H, Eosinophils (%) (Auto) 0.7, Basophils (%) (Auto) 0.4, Neutrophils # (Auto) 3.9, Lymphocytes # (Auto) 1.0L, Monocytes # (Auto) 0.6, Eosinophils # (Auto) 0.0, Basophils # (Auto) 0.0, Anion Gap 8, Glomerular Filtration Rate > 60.0, Blood Urea Nitrogen 13, Creatinine 0.90, Sodium Level 144, Potassium Level 3.8, C hloride Level 112H, Carbon Dioxide Level 24, Calcium Level 7.7L CBC/BMP Laboratory Tests 03/29/19 09:45 Red Blood Count 4.73, Mean Corpuscular Volume 91.3, Mean Corpuscular Hemoglobin 29.8, Mean Corpuscular Hemoglobin Concent 32.6, Red Cell Distribution Width 12.4, Neutrophils (%) (Auto) 74.5 H, Lymphocytes (%) (Auto) 14.7 L, Monocytes (%) (Auto) 6.8 H, Eosinophils (%) (Auto) 3.1 H, Basophils (%) (Auto) 0.4, Neutrophils # (Auto) 6.1, Lymphocytes # (Auto) 1.2 L, Monocytes # (Auto) 0.6, Eosinophils # (Auto) 0.3, Basophils # (Auto) 0.0 03/29/19 18:00 Red Blood Count 4.25 L, Mean Corpuscular Volume 89.6, Mean Corpuscular Hemoglobin 30.4, Mean Corpuscular Hemoglobin Concent 33.9, Red Cell Distribution Width 12.6 03/29/19 23:59 Red Blood Count 3.99 L, Mean Corpuscular Volume 88.5, Mean Corpuscular Hemoglobin 29.3, Mean Corpuscular Hemoglobin Concent 33.1, Red Cell Distribution Width 12.7 03/30/19 05:50 Red Blood Count 3.86 L, Mean Corpuscular Volume 91.5, Mean Corpuscular Hemoglobin 30.1, Mean Corpuscular Hemoglobin Concent 32.9, Red Cell Distribution Width 12.8, Neutrophils (%) (Auto) 69.4 H, Lymphocytes (%) (Auto) 18.2 L, Monocytes (%) (Auto) 11.1 H, Eosinophils (%) (Auto) 0.7, Basophils (%) (Auto) 0.4, Neutrophils # (Auto) 3.9, Lymphocytes # (Auto) 1.0 L, Monocytes # (Auto) 0.6, Eosinophils # (Auto) 0.0, Basophils # (Auto) 0.0, Calcium Level 7.7 L Microbiology Microbiology 03/29/19 Blood Culture, Received Pending 03/29/19 Blood Culture, Received Pending ALISON ANDERSEN MD Mar 30, 2019 08:05
--- NOTE | 2019-03-30 08:24 | ECGEPIP ---
[facility] - ED Test Date: 2019-03-29 Pat Name: KARRIE BAILEY Department: Room: - Gender: Male [employer]: : 1955 Requested By: ARIES Eagle Order Number: [id number] Reading MD: Kary Millan Measurements Intervals [place] Rate: 101 P: 72 MD: 149 QRS: 42 QRSD: 107 T: -19 QT: 324 QTc: 422 Interpretive Statements SINUS TACHYCARDIA ST DEVIATION AND MODERATE T-WAVE ABNORMALITY, CONSIDER ISCHEMIA POSSIBLE INFERIOR INFARCT, AGE INDETERMINATE NO PRIOR Electronically Signed on 03-30-2019 8:24:27 EDT by Kary Millan
[2019-03-30] MEDS: DOCUSATE SODIUM 100 MG CAP PO SCH ×2 (08:56→20:01)
--- NOTE | 2019-03-30 10:04 | IPNPDOC ---
Date Seen The patient was seen on 03/30/19. Progress Note Pt seen and examined. He has been compliant with bedrest. He is doing well s/p TPA thrombolysis bilat PE POD #1. No bleeding issues overnight, and groin access is c/d/i. He says he is breathing better. His HR is significantly improved, from 130s pre-procedure to 70s this morning. Aeration is better on auscultation. We have a planned return to IR today for repeat pulmonary arteriogram and possible repositioning of TPA lysis catheter vs discontinuation lysis catheter. Pt and his counseled. Continue NPO and bedrest for now. Plan for d/c later today or tomorrow with Stephanie, and pt will need at least one year of treatment and followup with PCP regarding outpatient management of anticoagulation and follow up of hypercoagulable workup (ordered yesterday). VS, I&O, 24H, Fishbone Vital Signs/I&O Vital Signs Date Time Temp Pulse Resp B/P (MAP) Pulse Ox O2 Delivery O2 Flow Rate FiO2 03/30/19 09:03 67 18 100/62 (75) 96 Room Air 03/30/19 08:09 99.8 03/30/19 05:00 2.0 I&O- Last 24 Hours up to 6 AM 03/30/19 06:00 Intake Total 2390 ml Output Total 800 ml Balance 1590 ml Laboratory Data 24H LABS Laboratory Tests 2 03/29/19 11:11: Prothrombin Time 14.6H, Prothromb Time International Ratio 1.16, Activated Partial Thromboplast Time 20.0L 03/29/19 13:46: Activated Partial Thromboplast Time > 240.0*H, Erythrocyte Sedimentation Rate 3, C-Reactive Protein, Quantitative 0.46H 03/29/19 15:09: Lactic Acid Followup at 4 Hours 2.0 03/29/19 18:00: Activated Partial Thromboplast Time 189.6*H, Nucleated Red Blood Cells % (auto) 0.0, Fibrinogen 284 03/29/19 18:59: Activated Partial Thromboplast Time 121.8*H 03/29/19 23:59: Activated Partial Thromboplast Time 52.0H, Nucleated Red Blood Cells % (auto) 0.0, Fibrinogen 280 03/30/19 05:50: Activated Partial Thromboplast Time 43.6H, Nucleated Red Blood Cells % (auto) 0.0, Fibrinogen 280, Immature Granulocyte % (Auto) 0.2, White Blood Count 5.7, Red Blood Count 3.86L, Hemoglobin 11.6L, Hematocrit 35.3L, Mean Corpuscular Volume 91.5, Mean Corpuscular Hemoglobin 30.1, Mean Corpuscular Hemoglobin Concent 32.9, Red Cell Distribution Width 12.8, Platelet Count 110L, Neutrophils (%) (Auto) 69.4H, Lymphocytes (%) (Auto) 18.2L, Monocytes (%) (Auto) 11.1H, Eosinophils (%) (Auto) 0.7, Basophils (%) (Auto) 0.4, Neutrophils # (Auto) 3.9, Lymphocytes # (Auto) 1.0L, Monocytes # (Auto) 0.6, Eosinophils # (Auto) 0.0, Basophils # (Auto) 0.0, Anion Gap 8, Glomerular Filtration Rate > 60.0, Blood Urea Nitrogen 13, Creatinine 0.90, Sodium Level 144, Potassium Level 3.8, Chloride Level 112H, Carbon Dioxide Level 24, Calcium Level 7.7L CBC/BMP Laboratory Tests 03/29/19 18:00 Red Blood Count 4.25 L, Mean Corpuscular Volume 89.6, Mean Corpuscular Hemoglobin 30.4, Mean Corpuscular Hemoglobin Concent 33.9, Red Cell Distribution Width 12.6 03/29/19 23:59 Red Blood Count 3.99 L, Mean Corpuscular Volume 88.5, Mean Corpuscular Hemoglobin 29.3, Mean Corpuscular Hemoglobin Concent 33.1, Red Cell Distribution Width 12.7 03/30/19 05:50 Red Blood Count 3.86 L, Mean Corpuscular Volume 91.5, Mean Corpuscular Hemoglobin 30.1, Mean Corpuscular Hemoglobin Concent 32.9, Red Cell Distribution Width 12.8, Neutrophils (%) (Auto) 69.4 H, Lymphocytes (%) (Auto) 18.2 L, Monocytes (%) (Auto) 11.1 H, Eosinophils (%) (Auto) 0.7, Basophils (%) (Auto) 0.4, Neutrophils # (Auto) 3.9, Lymphocytes # (Auto) 1.0 L, Monocytes # (Auto) 0.6, Eosinophils # (Auto) 0.0, Basophils # (Auto) 0.0, Calcium Level 7.7 L Microbiology Microbiology 03/29/19 Blood Culture - Preliminary, Resulted No growth after 24 hours . All specim... 03/29/19 Blood Culture - Preliminary, Resulted No growth after 24 hours . All specim... NICHOLAS NOBLES MD Mar 30, 2019 10:04
[2019-03-30] MEDS ORDERED: LIDOCAINE 1% MDV 20ML VIAL As Ordered ONE (10:46)
[2019-03-30] MEDS ORDERED: ISOVUE-300 61% 50ML VIAL (Q9967) As Ordered ONE (10:46)
[2019-03-30] MEDS ORDERED: fentaNYL 100 MCG/2 ML INJECTION (J3010) As Ordered ONE (11:23)
[2019-03-30] MEDS ORDERED: diphenhydrAMINE INJ 50MG/ML VIAL (J1200) As Ordered ONE (11:23)
[2019-03-30] MEDS ORDERED: MIDAZOLAM INJ 2 MG/2 ML VIAL (J2250) As Ordered ONE (11:24)
--- NOTE | 2019-03-30 12:40 | ROOPDOC ---
[facility] Report Of Operation Report of Operation DATE OF PROCEDURE: 03/30/19 PREPROCEDURE DIAGNOSES: Bilateral pulmonary emboli status post TPA thrombolysis catheter placement POSTPROCEDURE DIAGNOSES: Same PROCEDURE: 1. Pulmonary arteriogram 2. Removal TPA lysis catheter SURGEON: Nicholas Bentley MD ANESTHESIA: None INDICATION FOR PROCEDURE: Very pleasant 63-year-old gentleman with substantial bilateral pulmonary emboli, tachycardia, hypotension, and shortness of breath with exertion who underwent placement of a TPA thrombolysis catheter and overnight thrombolysis. We bring him back today for a planned reimaging of the pulmonary arteries and possible continuation of the TPA lysis catheter possible discontinuation. Patient's family were thoroughly counseled. He is agreeable to proceed. Informed consent was obtained. INTERPRETATION: 1. There is still a few areas of residual thrombus present bilaterally, but the majority of the main pulmonary artery thrombus has cleared. The patient is no longer tachycardic and is breathing easy, thus we were able to discontinue the TPA catheter at this time. REPORT OF OPERATION: The patient was brought to the angiographic suite in stable condition and his right groin sheath and catheter were prepped and draped in sterile fashion. A timeout was performed. With fluoroscopy, we confirm the tip of the TPA lysis catheter was still in the left pulmonary artery. We then flushed the TPA catheter and flushed the sheath with heparinized saline. Follo wing this, a pulmonary arteriogram was performed through the TPA catheter, but we did not obtain the image we hoped for the catheter back into the main pulmonary artery and a second pulmonary arteriogram was performed. Through this we saw the majority of thrombus had cleared from the main pulmonary arteries and there was much more flow getting to the distal pulmonary arteries through the branches. There is still some residual clot present, but the majority has cleared. We therefore discontinued the TPA catheter under fluoroscopic guidance and then discontinued the sheath and held pressure for 10 minutes for good hemostasis. The patient tolerated the procedure well. There were no Occasions. Our plan is for him to return to the ICU with a heparin drip will convert him to oral anticoagulation later today. ESTIMATED BLOOD LOSS: Approximately 2 mL. COMPLICATIONS: None. PLAN: We will restart the patient on a heparin drip for now and convert him to eliquis. He will need to be on full anticoagulation for at least one year. He should take an aspirin daily. From a vascular standpoint, if the patient is stable and able to ambulate without shortness of breath and does not need oxygen with exertion, he will be ready for discharge home later today. We will continue the heparin drip until the first dose of eliquis is given. If the patient is short of breath, we may watch him one more night and see how he does in the morning. NICHOLAS BENTLEY MD Mar 30, 2019 12:40
[2019-03-30] MEDS ORDERED: HEPARIN DRIP 25,000 UNITS in IV 1 EA IV SCH (12:46)
[2019-03-30] MEDS ORDERED: HEPARIN SOD (PORCINE) 5000 UNITS/ML VIAL IV PRN (13:00)
[2019-03-30] MEDS ORDERED: HEPARIN DRIP XX SCH (14:45)
--- NOTE | 2019-03-30 17:45 | ECHO ---
DATE OF PROCEDURE: 03/30/2019 REFERRING PHYSICIAN: Dr. Toney INDICATION: Pulmonary embolism Height 173 cm, weight 90 kg. DIMENSIONS: IVS: 1.0 LV: 3.6 LVPW: 1.0 LA: 2.5 Aorta: 3.7 IVC: 1.7 Mitral E wave velocity: 56 A wave: 69 E prime septal: 8.9 E prime lateral: 11.5 FINDINGS: Study is of acceptable technical quality. The patient is in sinus rhythm. Left ventricle is normal size and systolic function with estimated left ventricular ejection fraction (LVEF) 60-65%. Right ventricle is also normal size and systolic function. Both atria appear normal. All four cardiac valves were well seen and appear normal. No pericardial effusion is noted. Inferior vena cava is of normal size and appropriately collapses with respiration. Aortic root and aortic arch appear normal. Abdominal aorta was not well seen. Doppler interrogation reveals no aortic stenosis or insufficiency, no mitral insufficiency, mild tricuspid insufficiency with calculated pulmonary artery pressure in low 30s. Pulmonic valve is functionally competent. Mitral inflow pattern and tissue Doppler imaging of mitral annulus revealed grade 1 diastolic dysfunction. CONCLUSIONS: 1. Study is of good technical quality. 2. Normal left ventricular (LV) size with preserved LV systolic function and grade 1 diastolic dysfunction. 3. No significant valvular disease. 4. Likely normal central venous pressure and mild pulmonary hypertension. 5. Borderline dilated aortic root (3.7 cm). COMMENT: Subacute bacterial endocarditis (SBE) prophylaxis is not recommended.
[2019-03-30] MEDS ORDERED: CALCIUM CARBONATE 500 MG CHEW U/D PO PRN (19:30)
[2019-03-30] MEDS: APIXABAN 5 MG TAB (ELIQUIS) PO SCH (20:01)
[2019-03-31] VITALS: BP 127/76
[2019-03-31 04:00] VITALS: BP 134/79
[2019-03-31 05:46] LABS: BASO % 0.4 % (0.0-1.0); EOS # 0.2 10^3/uL (0.0-0.5); EOS % 4.6 % (0.0-3.0); HEMATOCRIT 36.9 % (42.0-52.0); HEMOGLOBIN 12.3 g/dl (13.5-17.5); LYMPH # 0.9 10^3/uL (1.5-5.0); MEAN CORPUSCULAR HEMOGLOBIN 29.7 pg (27.0-33.0); MEAN CORPUSCULAR HGB CONC 33.3 g/dl (32.0-36.5); MEAN CORPUSCULAR VOLUME 89.1 fl (80.0-96.0); MONO # 0.5 10^3/uL (0.0-0.8); MONO % 10.1 % (0.0-5.0); NEUTROPHILS # 3.1 10^3/uL (1.5-8.5); NEUTROPHILS % 65.7 % (36.0-66.0); PLATELET COUNT, AUTOMATED 107 10^3/uL (150-450); RED BLOOD COUNT 4.14 10^6/uL (4.30-6.10); WHITE BLOOD COUNT 4.7 10^3/uL (4.0-10.0)
[2019-03-31 06:13] LABS: BLOOD UREA NITROGEN 9 MG/DL (7-18); CARBON DIOXIDE LEVEL 27 MEQ/L (21-32); CHLORIDE LEVEL 110 MEQ/L (98-107); CREATININE FOR GFR 0.84 MG/DL (0.70-1.30); GLOMERULAR FILTRATION RATE > 60.0 (>49); GLUCOSE, FASTING 83 MG/DL (70-100); POTASSIUM SERUM 3.8 MEQ/L (3.5-5.1); SODIUM LEVEL 143 MEQ/L (136-145)
[2019-03-31] MEDS ORDERED: PERCOCET PO (07:34)
[2019-03-31] MEDS ORDERED: ELIQ5TAB PO ×2 (07:34→11:21)
[2019-03-31 07:35] VITALS: BP 120/70
[2019-03-31] MEDS ORDERED: 3 SEMIS2 XX (07:39)
--- NOTE | 2019-03-31 07:39 | IPNPDOC ---
Date Seen The patient was seen on 03/31/19. Progress Note Pt seen and examined last night and this morning. Doing well, breathing easy. Had some coughing last night, likely due to resolving atelectasis due to PEs. Aeration better with spirometry, and less coughing today. Rt groin access site c/d/i and soft, no bruising noted. OOB to chair with no problem, but still has not ambulated. Needs to ambulate with assist to see if he is SOB with activity. Depending on how he does, recommend D/c home today with 1 year parth, follow up with vascular surgery in 3 months with left lower extremity venous duplex RE: h/o LLE DVT, f/u with PCP RE: [facility] management anticoagulation and follow up hypercoag workup. Activity as radha. Walk around every hour when on long trips driving/flying. VS, I&O, 24H, Fishbone Vital Signs/I&O Vital Signs Date Time Temp Pulse Resp B/P (MAP) Pulse Ox O2 Delivery O2 Flow Rate FiO2 03/31/19 04:00 98.4 77 16 134/79 (97) 96 Room Air 03/30/19 12:40 2 l I&O- Last 24 Hours up to 6 AM 03/31/19 05:59 Intake Total 1544 ml Output Total 3025 ml Balance -1481 ml Laboratory Data 24H LABS Laboratory Tests 2 03/30/19 17:13: Activated Partial Thromboplast Time 65.4H 03/31/19 05:35: Immature Granulocyte % (Auto) 0.2, White Blood Count 4.7, Red Blood Count 4.14L, Hemoglobin 12.3L, Hematocrit 36.9L, Mean Corpuscular Volume 89.1, Mean Corpuscular Hemoglobin 29.7, Mean Corpuscular Hemoglobin Concent 33.3, Red Cell Distribution Width 12.3, Platelet Count 107L, Neutrophils (%) (Auto) 65.7, Lymphocytes (%) (Auto) 19.0L, Monocytes (%) (Auto) 10.1H, Eosinophils (%) (Auto) 4.6H, Basophils (%) (Auto) 0.4, Neutrophils # (Auto) 3.1, Lymphocytes # (Auto) 0.9L, Monocytes # (Auto) 0.5, Eosinophils # (Auto) 0.2, Basophils # (Auto) 0.0, Nucleated Red Blood Cells % (auto) 0.0, Anion Gap 6L, Glomerular Filtration Rate > 60.0, Blood Urea Nitrogen 9, Creatinine 0.84, Sodium Level 143, Potassium Level 3.8, Chloride Level 110H, Carbon Dioxide Level 27, Calcium Level 8.0L CBC/BMP Laboratory Tests 03/31/19 05:35 Red Blood Count 4.14 L, Mean Corpuscular Volume 89.1, Mean Corpuscular Hemoglobin 29.7, Mean Corpuscular Hemoglobin Concent 33.3, Red Cell Distribution Width 12.3, Neutrophils (%) (Auto) 65.7, Lymphocytes (%) (Auto) 19.0 L, Monocytes (%) (Auto) 10.1 H, Eosinophils (%) (Auto) 4.6 H, Basophils (%) (Auto) 0.4, Neutrophils # (Auto) 3.1, Lymphocytes # (Auto) 0.9 L, Monocytes # (Auto) 0.5, Eosinophils # (Auto) 0.2, Basophils # (Auto) 0.0, Calcium Level 8.0 L Microbiology Microbiology 03/29/19 Blood Culture - Preliminary, Resulted No growth after 24 hours . All specim... 03/29/19 Blood Culture - Preliminary, Resulted No growth after 24 hours . All specim... NICHOLAS NOBLES MD Mar 31, 2019 07:39
[2019-03-31] MEDS: APIXABAN 5 MG TAB (ELIQUIS) PO SCH (09:21)
[2019-03-31] MEDS: DOCUSATE SODIUM 100 MG CAP PO SCH (09:21)
[2019-03-31 09:36] LABS: DRVV SCREEN 53.5 SEC
[2019-03-31 10:07] LABS: PTT LUPUS TYPE ANTICOAG SCREEN 1.3 (0-1.2)
[2019-03-31 10:15] LABS: DRVV CONFIRM 49.4 SEC; LUPUS CONFIRM RATIO 1.3
[2019-03-31 14:59] LABS: ANTINUCLEAR ANTIBODIES DIRECT Negative (Negative)
--- NOTE | 2019-03-31 16:28 | DSES ---
DATE OF ADMISSION: 03/29/2019 DATE OF DISCHARGE: 03/31/2019 TRAIN STARTER: Dr. Bentley, Vascular Surgery. PROCEDURES DURING THIS ADMISSION: Pulmonary thrombolysis on 03/29/2019. PRIMARY DISCHARGE DIAGNOSES: 1. Syncope due to massive pulmonary embolism (PE) with hypotension. 2. Pulmonary embolism with left popliteal and distal deep vein thrombosis (DVT). 3. Hypotension secondary to massive pulmonary embolism. 4. Dyslipidemia. 5. Chronic low back pain with muscle spasms. DISCHARGE MEDICATIONS: - loading dose of Xarelto 10 mg twice a day for 7 days, then 5 mg twice a day, to be reevaluated by Dr. Bentley at 3 months' time. The patient is to continue with anticoagulation for 1 year. - oxycodone-acetaminophen one tablet every 6 hours as needed for pain - atorvastatin 20 mg daily - lisinopril 5 mg daily - metoprolol 25 mg daily INSTRUCTIONS: The patient is to hold the lisinopril and metoprolol for systolic pressure that is less than 140. The patient is to followup with vascular surgery, Dr. Bentley, and primary care physician within 1 week of hospital discharge. 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 He was hypotensive and hypothermic, could not get an IV on the field. The patient was sorting through things when he felt very dizzy and leaned on the snowblower as he was about to pass out. 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 In the emergency room (ER), he was found to be hypotensive, pressure of 68, hypothermic with temperature of 95. Workup included CT chest which showed extensive bilateral PE in all the lobes, particularly the left lower lobe segmental vessels, as well as deep vein thrombosis (DVT) in left popliteal and tibioperoneal trunk. Dr. Bentley was consulted for pulmonary thrombolysis. Patient proceeded to interventional radiology (IR) on 03/29/2019 and underwent tPA thrombolysis with informed consent. Patient improved significantly and was 94-97% on room air. No complaints of recurrent dizziness. He was then started on Eliquis 10 mg twice a day as a loading dose. He did have complaints of pain for which he was given Percocet one tablet every 6 hours for his chronic pain. Patient was stable for hospital discharge, not requiring oxygen and no recurrent episodes of syncope. Patient was to be off of work until April 17, 2019, or unless otherwise instructed by Dr. Bentley, vascular surgery, who will see him within 1 week. LABORATORY On discharge, white count 4.7, hemoglobin 12, hematocrit 36, platelet count 107. Sodium 143, potassium 3.8, chloride 110, bicarbonate 27, BUN 9, creatinine 0.84, glucose of 83, PTT is 65.4, INR 1.6, anticardiolipin IgG, IgM are all pending, SS-A, SS-B Ro and La antibodies are pending. His INNA is negative, atypical ANCA and c-ANCA and p-ANCA are both pending. Microbiology: Two sets of blood cultures on 03/29/2019 - no growth after 48 hours. IMAGING STUDIES: 03/29/2019 CT of the head: No CT evidence of acute infarct, hemorrhage, mass, or mass effect or edema. Otherwise negative CT of the brain. Chest x-ray: Left ventricular configuration without vascular redistribution or pulmonary edema. No acute infiltrate. Hiatal hernia. 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 Cervical spine CT: Cervical spondylosis C3-C4 through C6 without compression fracture or malalignment. No significant central canal stenosis, but there is foraminal encroachment due to combined factors at multiple levels. CT angio of the chest: Extensive PE involving all the lobes, the lower lobe segmental vessels, left than right, moderate size hiatal hernia, left ventricular enlargement, minor degenerative bone findings. CT abdomen and pelvis: No CT evidence of acute pathology in the abdomen and pelvis. Venous Dopplers of bilateral lower extremities: Occlusive thrombus distal left popliteal vein into the tibioperoneal trunk, left posterior tibial and left peroneal veins. Proximal popliteal vein through the common femoral vein are without thrombus and fully compressible. No DVT in the right lower extremity. TIME SPENT ON DISCHARGE: 30 minutes. [facility]
== END 2019-03-31 12:06 | disposition home or self-care (01) | DRG 134 ==
LOC: EDBD 08:41 → M ED 08:41 → M ED INP 13:04 → M ICU 17:55
PROVIDERS: ADMIT Internal Medicine Nephrology; ATTEND Internal Medicine Nephrology
PROC: 02HR33Z Insertion of Infusion Device into Left Pulmonary Artery, Percutaneous Approach (ICD-10-PCS; principal; 2019-03-29 15:28)
DX: I26.99 Other pulmonary embolism without acute cor pulmonale (principal); I95.9 Hypotension, unspecified; I82.432 Acute embolism and thrombosis of left popliteal vein; I10 Essential (primary) hypertension; J98.11 Atelectasis; E78.5 Hyperlipidemia, unspecified; M62.830 Muscle spasm of back; Z79.899 Other long term (current) drug therapy; K57.30 Diverticulosis of large intestine without perforation or abscess without bleeding; N40.0 Benign prostatic hyperplasia without lower urinary tract symptoms; J45.909 Unspecified asthma, uncomplicated; Z87.891 Personal history of nicotine dependence; Z95.2 Presence of prosthetic heart valve; Z88.8 Allergy status to other drugs, medicaments and biological substances